=== PATIENT | female | born 1955 | race Caucasian/White ===

== ENCOUNTER 2016-07-10 11:53 | Emergency (ER) | payer OTHER ==
[~2016-07-10] VITALS: Ht 165.1 cm; Wt 81.8 kg
[2016-07-10 12:09] VITALS: BP 154/74
--- NOTE | 2016-07-10 12:25 | PHYS DOC ---
Past History Past Medical History: Diverticulitis Past Surgical History: Hysterectomy, Other Alcohol Use: Occasionally Drug Use: None Adult General Chief Complaint Chief Complaint: ABDOMINAL PAIN [facility] HPI Patient is a is a 60-year-old female who presents with left lower quadrant abdominal pain since Friday with positive nausea but no vomiting. Patient states she's had low-grade fevers for the past 2 days. Patient denies any diarrhea or any blood in her stool. Patient states she has a history of diverticulitis and this feels like her previous episodes. She denies any chest pain or shortness of breath. She has no other complaints. Pertinent exam findings: Positive TTP left lower quadrant ED course: Patient is seen on arrival CBC, CMP, lipase, UA, CT of abdomen and pelvis with contrast, 1 L normal saline bolus were ordered 1410: Discussed results with the patient and the need for oral antibiotics and short-term follow-up with PCP. Pertinent findings: Acute doctor colitis on the CT scan MMD: After reviewing the chart, chief complaint, history of present illness, past medical history, lab results, CT results I do not believe the patient has a significant intra-abdominal infection warranting further workup and admission at this time. I believe patient is stable to be discharged home for outpatient treatment of a non-complicated articulate this. Recommended patient follow-up with PCP in 1-2 days and return symptoms increase. Additional verbal discharge infections were provided patient in the symptoms get worse or any new symptoms arise that are worrisome to the patient he's returned emergency room immediately. Review of Systems Review of Systems Constitutional: Denies fever or chills [] Eyes: Denies change in visual acuity, redness, or eye pain [] HENT: Denies nasal congestion or sore throat [] Respiratory: Denies cough or shortness of breath [] Cardiovascular: No additional information not addressed in HPI [] GI: Left lower quadrant abdominal pain : Denies dysuria or hematuria [] Musculoskeletal: Denies back pain or joint pain [] Integument: Denies rash or skin lesions [] Current Medications Current Medications Current Medications Medications (Trade) Dose Ordered Sig/Steven Start Time Stop Time Status Last Admin Dose Admin Sodium Chloride 1,000 ml @ 1,000 mls/hr 1X ONCE 07/10/16 12:30 07/10/16 13:29 UNV Allergies Allergies Allergies Coded Allergies Type Severity Reaction Last Updated Verified No Known Drug Allergies 03/31/16 No Physical Exam Physical Exam Constitutional: Well developed, well nourished, no acute distress, non-toxic appearance. [] HENT: Normocephalic, atraumatic, bilateral external ears normal, oropharynx moist, no oral exudates, nose normal. [] Eyes: PERRLA, EOMI, conjunctiva normal, no discharge. [] Neck: Normal range of motion, no tenderness, supple, no stridor. [] Cardiovascular:Heart rate regular rhythm, no murmur [] Lungs & Thorax: Bilateral breath sounds clear to auscultation [] Abdomen: Bowel sounds normal, soft, positive TTP left lower quadrant, no masses , no pulsatile masses. [] Skin: Warm, dry, no erythema, no rash. [] Back: No tenderness, no CVA tenderness. [] Extremities: No tenderness, no cyanosis, no clubbing, ROM intact, no edema. [] Neurologic: Alert and oriented X 3, normal motor function, normal sensory function, no focal deficits noted. [] Psychologic: Affect normal, judgement normal, mood normal. [] Current Patient Data Vital Signs Vital Signs Date Time Temp Pulse Resp B/P (MAP) Pulse Ox O2 Delivery O2 Flow Rate FiO2 07/10/16 12:09 97.9 79 20 97 Room Air EKG EKG [] Radiology/Procedures Radiology/Procedures IMPRESSION: Mild inflammatory changes extending over approximately a 4 to 5 cm segment at the junction of the descending and sigmoid colon. Findings would be compatible with relatively mild diverticulitis. No discrete abscess is seen. (If colonoscopy has not been recently performed this should be considered. Underlying malignancy in the colon is not excluded on the basis of this exam). Course & Med Decision Making Course & Med Decision Making Pertinent Labs and Imaging studies reviewed. (See chart for details) [] Dragon Disclaimer Dragon Disclaimer This chart was dictated in whole or in part using Voice Recognition software in a busy, high-work load, and often noisy Emergency Department environment. It may contain unintended and wholly unrecognized errors or omissions. Departure Departure: Impression: Primary Impression: Diverticulitis large intestine Disposition: 01 HOME, SELF-CARE Condition: IMPROVED Referrals: PERRI RIGGINS MD (PCP) Patient Instructions: Diverticulitis Additional Instructions: Please follow up with family doctor in one to 2 days. Scripts Metronidazole (FLAGYL) 500 Mg Tablet 500 MG PO TID for 10 Days, #30 TAB Prov: CLIFFORD WAN DO 07/10/16 Ciprofloxacin Hcl (CIPRO) 500 Mg Tablet 500 MG PO BID for 10 Days, #20 TAB Prov: CLIFFORD WAN DO 07/10/16 Problem Qualifiers Primary Impression: Diverticulitis large intestine Diverticulitis bleeding: without bleeding Diverticulitis complication: without perforation or abscess Qualified Codes: K57.32 - Diverticulitis of large intestine without perforation or abscess without bleeding CLIFFORD WAN DO July 10, 2016 12:25
[2016-07-10] MEDS ORDERED: IV NORMAL SALINE 1,000ML 1,000 ML IV ONE (12:30)
[2016-07-10] MEDS ORDERED: ONDANSETRON PF 4 MG/2 ML VIAL. ONE (12:32)
[2016-07-10] MEDS ORDERED: IOHEXOL 300 MG/ML 75 ML VIAL. IV ONE (12:45)
[2016-07-10 13:02] LABS: BASO # 0.1 x10^3/uL (0.0-0.2); BASO % 1 % (0-3); EOS # 0.1 x10^3/uL (0.0-0.7); EOS % 1 % (0-3); HEMATOCRIT 41.3 % (36.0-47.0); HEMOGLOBIN 14.2 g/dL (12.0-15.5); LYMPH # 2.4 x10^3/uL (1.0-4.8); LYMPH % 20 % (24-48); MEAN CORPUSCULAR HEMOGLOBIN 28 pg (25-35); MEAN CORPUSCULAR HGB CONC 35 g/dL (31-37); MEAN CORPUSCULAR VOLUME 80 fL (79-100); MONO % 8 % (0-9); NEUT # 8.3 x10^3uL (1.8-7.7); NEUT % 70 % (31-73); PLATELET COUNT 319 x10^3/uL (140-400); RED BLOOD COUNT 5.16 x10^6/uL (3.50-5.40); RED CELL DISTRIBUTION WIDTH 14.3 % (11.5-14.5)
[2016-07-10 13:16] LABS: ALBUMIN 3.8 g/dL (3.4-5.0); ALBUMIN/GLOBULIN RATIO 0.8 (1.0-1.7); CALCIUM 9.2 mg/dL (8.5-10.1); CREATININE 0.9 mg/dL (0.6-1.0); GFR 63.4; POTASSIUM 3.4 mmol/L (3.5-5.1); TOTAL BILIRUBIN 0.3 mg/dL (0.2-1.0); TOTAL PROTEIN 8.3 g/dL (6.4-8.2)
--- NOTE | 2016-07-10 13:19 | RAD ---
Indication left lower quadrant pain. Axial images through the abdomen and pelvis were obtained. IV contrast, approximately 75 cc of Omnipaque 300 was administered. No oral contrast was administered. Note is made of a previous exam just over 3 months ago The lung bases are clear. A focal mass lesion in the liver is not seen. There is mild fatty infiltration. The spleen appears unremarkable. Clips are noted in the gallbladder fossa. The pancreas appears unremarkable. No adrenal pathology is seen. There is a left renal cysts similar to the previous exam. In the pelvis diverticular disease is noted associated with the large bowel. This is most pronounced in the sigmoid colon. There are probable mild inflammatory changes at the junction of the descending and sigmoid colon extending over approximately a 4 to 5 cm segment. Inflammatory changes are similar to the previous exam. No discrete abscess is seen. IMPRESSION: Mild inflammatory changes extending over approximately a 4 to 5 cm segment at the junction of the descending and sigmoid colon. Findings would be compatible with relatively mild diverticulitis. No discrete abscess is seen. (If colonoscopy has not been recently performed this should be considered. Underlying malignancy in the colon is not excluded on the basis of this exam).
[2016-07-10 13:34] LABS: BACTERIA,URINE 0 /HPF (0-FEW); BILIRUBIN,URINE NEG (NEG); CLARITY,URINE HAZY; COLOR,URINE YELLOW; GLUCOSE,URINE NEG (NEG); NITRITE,URINE NEG (NEG); RBC,URINE RARE /HPF (0-2); SQUAMOUS EPITHELIAL CELL,UR OCC /LPF; UROBILINOGEN,URINE 0.2 mg/dL (0.2 mg/dL); WBC,URINE RARE /HPF (0-4)
[2016-07-10] MEDS ORDERED: CIPR500T94 PO (14:16)
[2016-07-10] MEDS ORDERED: METR500T PO (14:16)
== END 2016-07-10 14:30 | disposition home or self-care (01) ==
LOC: ER 11:53
DX: K57.32 Diverticulitis of large intestine without perforation or abscess without bleeding (principal); Z90.710 Acquired absence of both cervix and uterus
CPT/HCPCS: 36415; 74177; 80053; 81001; 83690; 85027; 96360; 99285; Q9967; J7030

== ENCOUNTER 2016-08-06 18:57 | Emergency (ER) | payer OTHER ==
[~2016-08-06] VITALS: Ht 165.1 cm; Wt 81.8 kg
[~2016-08-06 18:57] MED LIST: CIPR500T94 PO; METR500T PO
[2016-08-06 19:00] VITALS: BP 123/66
[2016-08-06] MEDS ORDERED: IV NORMAL SALINE 1,000ML 1,000 ML IV SCH (19:07)
[2016-08-06] MEDS ORDERED: ONDANSETRON PF 4 MG/2 ML VIAL. IV ONE (19:15)
[2016-08-06] MEDS ORDERED: fentaNYL PF 100 MCG/2 ML VIAL IV PRN (19:15)
--- NOTE | 2016-08-06 19:21 | ED.ADGEN ---
Past History Past Medical History: Diverticulitis Past Surgical History: Hysterectomy, Other Alcohol Use: Occasionally Drug Use: None Adult General HPI HPI Patient is a 60-year-old woman, history of hypertension, myasthenia gravis, diverticulitis, first diagnosed in 2014, with 3 previous flares this year, who presents to the emergency department with complaint of abdominal pain with concern for recurrent diverticulitis. Patient states that the symptoms are the same as with her previous episodes, she states that it began about 3 days ago, without any triggers, symptoms have been worsening, pain currently is a 3 out of 10, but is going up to a 9 out of 10 at times, associated with multiple sodas of diarrhea over the past 3 days, with 4 episodes today of loose brown stool. She denies any nausea or vomiting currently, denies any blood in her stool, no fevers or chills, states that "I didn't wait long enough for that to happen this time". Patient states she has hydrocodone at home, but has not yet taken one, she preferred to come to the ED for evaluation after contacting her major gifts officer, Dr. Knox's, office. She states she has an appointment for August 21. Her last colonoscopy was in 2014, she states that they have discussed surgical intervention due to the recurrent episodes. Patient denies any injuries , any sick contacts or exposures, any known triggers. She states that she has been taking her is a steak mean without issue, and her antihypertensive medications. Patient has not taken any antibiotics since her previous episode of diverticulitis in June. Review of Systems Review of Systems Constitutional: Denies fever or chills [] Eyes: Denies change in visual acuity, redness, or eye pain [] HENT: Denies nasal congestion or sore throat [] Respiratory: Denies cough or shortness of breath [] Cardiovascular: No additional information not addressed in HPI [] GI: Sharp stabbing left lower quadrant abdominal pain, associated with multiple sodas of loose brown stool, no nausea, vomiting, bloody stools. : Denies dysuria or hematuria [] Musculoskeletal: Denies back pain or joint pain [] Integument: Denies rash or skin lesions [] Neurologic: Denies headache, focal weakness or sensory changes [] Endocrine: Denies polyuria or polydipsia [] Current Medications Current Medications Current Medications Medications (Trade) Dose Ordered Sig/Steven Start Time Stop Time Status Last Admin Dose Admin Fentanyl Citrate (Fentanyl 2ml Vial) 25 mcg PRN Q15MIN PRN 08/06/16 19:15 08/06/16 21:52 DC Info (Do NOT chart on this entry -- for MONITORING) 1 each PRN DAILY PRN 08/06/16 20:15 08/06/16 21:52 DC Iohexol (Omnipaque 300 Mg/ml) 75 ml 1X ONCE 08/06/16 20:15 08/06/16 20:16 DC Levofloxacin (Levaquin) 500 mg 1X ONCE 08/06/16 21:30 08/06/16 21:31 DC 08/06/16 21:30 500 MG Metronidazole (Flagyl) 500 mg 1X ONCE 08/06/16 21:30 08/06/16 21:31 DC 08/06/16 21:30 500 MG Ondansetron HCl (Zofran) 4 mg 1X ONCE 08/06/16 19:15 08/06/16 19:21 DC 08/06/16 19:30 4 MG Oxycodone/ Acetaminophen (Percocet 5/325) 1 tab 1X ONCE 08/06/16 21:30 08/06/16 21:31 DC Sodium Chloride 1,000 ml @ 1,000 mls/hr Q1H 08/06/16 19:07 08/06/16 20:06 DC 08/06/16 19:30 1,000 MLS/HR Allergies Allergies Allergies Coded Allergies Type Severity Reaction Last Updated Verified No Known Drug Allergies 03/31/16 No Physical Exam Physical Exam Constitutional: Well developed, well nourished, no acute distress, non-toxic appearance. [] HENT: Normocephalic, atraumatic, bilateral external ears normal, oropharynx moist, no oral exudates, nose normal. [] Eyes: PERRLA, EOMI, conjunctiva normal, no discharge. [] Neck: Normal range of motion, no tenderness, supple, no stridor. [] Cardiovascular:Heart rate regular rhythm, no murmur, S1, S2, no rubs or gallops. [] Lungs & Thorax: Bilateral breath sounds clear to auscultation, no wheezing, rhonchi, rales. No chest wall crepitus or tenderness. [] Abdomen: Bowel sounds normal, soft, tenderness to palpation in the left lower quadrant, with mild voluntary guarding, no rebound or rigidity, no masses, no pulsatile masses. [] Skin: Warm, dry, no erythema, no rash. [] Back: No tenderness, no CVA tenderness. [] Extremities: No tenderness, no cyanosis, no clubbing, ROM intact, no edema. [] Neurologic: Alert and oriented X 3, normal motor function, normal sensory function, no focal deficits noted. [] Psychologic: Affect normal, judgement normal, mood normal. [] Current Patient Data Vital Signs Vital Signs Date Time Temp Pulse Resp B/P (MAP) Pulse Ox O2 Delivery O2 Flow Rate FiO2 08/06/16 19:00 98.7 82 20 97 Room Air Lab Results Laboratory Tests Test 08/06/16 19:25 White Blood Count 12.9 x10^3/uL (4.0-11.0) H Red Blood Count 4.72 x10^6/uL (3.50-5.40) Hemoglobin 12.9 g/dL (12.0-15.5) Hematocrit 38.1 % (36.0-47.0) Mean Corpuscular Volume 81 fL (79-100) Mean Corpuscular Hemoglobin 27 pg (25-35) Mean Corpuscular Hemoglobin Concent 34 g/dL (31-37) Red Cell Distribution Width 14.2 % (11.5-14.5) Platelet Count 291 x10^3/uL (140-400) Neutrophils (%) (Auto) 70 % (31-73) Lymphocytes (%) (Auto) 20 % (24-48) L Monocytes (%) (Auto) 8 % (0-9) Eosinophils (%) (Auto) 2 % (0-3) Basophils (%) (Auto) 1 % (0-3) Neutrophils # (Auto) 9.0 x10^3uL (1.8-7.7) H Lymphocytes # (Auto) 2.5 x10^3/uL (1.0-4.8) Monocytes # (Auto) 1.0 x10^3/uL (0.0-1.1) Eosinophils # (Auto) 0.2 x10^3/uL (0.0-0.7) Basophils # (Auto) 0.1 x10^3/uL (0.0-0.2) Urine Collection Type Unknown Urine Color Yellow Urine Clarity Clear Urine pH 6.0 Urine Specific [place] 1.015 Urine Protein Neg (NEG-TRACE) Urine Glucose (UA) Neg mg/dL (NEG) Urine Ketones (Stick) Neg mg/dL (NEG) Urine Blood Small (NEG) Urine Nitrite Neg (NEG) Urine Bilirubin Neg (NEG) Urine Urobilinogen Dipstick 0.2 mg/dL (0.2 mg/dL) Urine Leukocyte Esterase Trace (NEG) Urine RBC Occ /HPF (0-2) Urine WBC 1-4 /HPF (0-4) Urine Squamous Epithelial Cells Occ /LPF Urine Bacteria Few /HPF (0-FEW) Sodium Level 139 mmol/L (136-145) Potassium Level 3.2 mmol/L (3.5-5.1) L Chloride Level 101 mmol/L (98-107) Carbon Dioxide Level 29 mmol/L (21-32) Anion Gap 9 (6-14) Blood Urea Nitrogen 23 mg/dL (7-20) H Creatinine 0.9 mg/dL (0.6-1.0) Estimated GFR (Cockcroft-Gault) 63.4 BUN/Creatinine Ratio 26 (6-20) H Glucose Level 93 mg/dL (70-99) Calcium Level 8.8 mg/dL (8.5-10.1) Total Bilirubin 0.3 mg/dL (0.2-1.0) Aspartate Amino Transferase (AST) 35 U/L (15-37) Alanine Aminotransferase (ALT) 51 U/L (14-59) Alkaline Phosphatase 96 U/L (46-116) Total Protein 7.6 g/dL (6.4-8.2) Albumin 3.7 g/dL (3.4-5.0) Albumin/Globulin Ratio 0.9 (1.0-1.7) L Lipase 165 U/L (73-393) Radiology/Procedures Radiology/Procedures [][address] [address] IMAGING REPORT Signed PATIENT: PATT ZULETA ACCOUNT: [id number] : 1955 LOCATION: ER AGE: 60 SEX: F EXAM STATUS: REG ER ORD. PHYSICIAN: BRISA COATS DO REASON: LLQ abd pain x 3 days, hx of diverticulitis PROCEDURE: CT ABD PELV W/ IV CONTRST ONLY CT ABD PELV W/ IV CONTRST ONLY dated 08/06/2016 7:15 PM Indication: Abdominal pain, painLLQ PAIN, HX DIVERTICULITIS, VINH, HYSTERECTOMY pain for 3 days Comparison: 03/31/2016 Technique: Contiguous axial imaging of the abdomen and pelvis performed after the intravenous administration of Isovue 370. One or more of the following individualized dose reduction techniques were utilized for this examination: 1. Automated exposure control 2. Adjustment of the mA and/or kV according to patient size 3. Use of iterative reconstruction technique Findings: Limited images of lung bases show minimal linear opacity in the lingula and left lower lobe, likely scar or atelectasis. Heart size within normal limits. No pleural or pericardial effusion. Liver is of diffuse low density suggesting mild fatty infiltration. No apparent hepatic mass. Biliary tree normal in caliber. The gallbladder is surgically absent. Spleen, pancreas, adrenal glands and kidneys are unremarkable. Exophytic low-density lesion mid pole left kidney measures 2.1 cm in size and Hounsfield value of 25. Additional low-density focus at the upper pole left kidney with Hounsfield value of 3, consistent with cyst. No hydronephrosis. Unopacified GI tract normal in caliber and contour. No focal bowel wall thickening. No inflammatory stranding in the mesentery. There are a few scattered diverticula of throughout the colon. No pericolonic inflammatory changes. No free fluid or lymphadenopathy. Abdominal aorta normal in caliber. Images of the pelvis a nondistended urinary bladder. Uterus is surgically absent. No free pelvic fluid or pelvic lymphadenopathy. Bone windows show no acute findings. Mild multilevel spondylosis. IMPRESSION: 1. No acute abnormality of the abdomen or pelvis. 2. Diverticulosis with no evidence of acute diverticulitis. 3. Mild fatty infiltration of the liver. 4. Indeterminate small exophytic nodule at the mid to lower pole left kidney. This could represent a hyperdense cyst or cystic neoplasm. Suggest ultrasound for further evaluation. Electronically signed by: Terence Wisdom MD (08/06/2016 8:45 PM) DICTATED AND SIGNED BY: TERENCE WISDOM MD DATE: 08/06/162038 CC: PERRI RIGGINS MD; BRISA COATS DO ~ Course & Med Decision Making Course & Med Decision Making Pertinent Labs and Imaging studies reviewed. (See chart for details) After discussion at bedside, patient is agreeable to receiving pain medication, antiemetics as needed, and IV fluids. She has had multiple imaging of her abdomen previously, due to the history of diverticulitis, and length of time of symptoms, will proceed with repeat imaging of the abdomen, after discussion of benefits and risk, along with laboratory studies. She declined medication on reevaluation, CT imaging does not reveal any evidence of abscess formation or other concerning abdominal findings. I did discuss this with patient, however based on her mildly elevated white blood cell count of 12.9, and history of multiple sodas of diverticulitis with similar presentation, will initiate the patient on antibiotics, and have her follow-up with her gastric neurologist for additional evaluation and management. Patient received first dose of Levaquin and maternal reproducible in the ED, she has taken these medications previously is familiar with risks and side effects. First dose tolerated in the ED without issue. Patient given clear and detailed return instructions and precautions, patient voiced understanding and agreement. Discharged home in stable condition with plan as above. Final Impression Final Impression [] Problems: Dragon Disclaimer Dragon Disclaimer This electronic medical record was generated, in whole or in part, using a voice recognition dictation system. Departure: Impression: Primary Impression: Diverticulitis Additional Impressions: Leukocytosis Diarrhea Disposition: 01 HOME, SELF-CARE Condition: IMPROVED Scripts Hydrocodone Bit/Acetaminophen (HYDROCODONE-APAP 5-325 ) 1 Each Tablet 1 TAB PO PRN Q6HRS Y for PAIN, #12 TAB 0 Refills Prov: BRISA COATS DO 08/06/16 Metronidazole (METRONIDAZOLE) 500 Mg Tablet 1 TAB PO BID, #13 TAB Prov: BRISA COATS DO 08/06/16 Levofloxacin (LEVAQUIN) 750 Mg Tablet 1 TAB PO DAILY, #6 TAB Prov: BRISA COATS DO 08/06/16 Ondansetron Hcl (ZOFRAN) 4 Mg Tablet 4 MG PO PRN Q8HRS Y for NAUSEA, #12 Prov: BRISA COATS DO 08/06/16 BRISA COATS DO Aug 06, 2016 19:21
[2016-08-06 19:56] LABS: BASO # 0.1 x10^3/uL (0.0-0.2); BASO % 1 % (0-3); EOS # 0.2 x10^3/uL (0.0-0.7); EOS % 2 % (0-3); HEMATOCRIT 38.1 % (36.0-47.0); HEMOGLOBIN 12.9 g/dL (12.0-15.5); LYMPH # 2.5 x10^3/uL (1.0-4.8); LYMPH % 20 % (24-48); MEAN CORPUSCULAR HEMOGLOBIN 27 pg (25-35); MEAN CORPUSCULAR HGB CONC 34 g/dL (31-37); MEAN CORPUSCULAR VOLUME 81 fL (79-100); MONO % 8 % (0-9); NEUT % 70 % (31-73); PLATELET COUNT 291 x10^3/uL (140-400); RED BLOOD COUNT 4.72 x10^6/uL (3.50-5.40); RED CELL DISTRIBUTION WIDTH 14.2 % (11.5-14.5); WHITE BLOOD COUNT 12.9 x10^3/uL (4.0-11.0)
[2016-08-06 20:09] LABS: ALBUMIN 3.7 g/dL (3.4-5.0); ALBUMIN/GLOBULIN RATIO 0.9 (1.0-1.7); CALCIUM 8.8 mg/dL (8.5-10.1); CREATININE 0.9 mg/dL (0.6-1.0); GFR 63.4; POTASSIUM 3.2 mmol/L (3.5-5.1); TOTAL BILIRUBIN 0.3 mg/dL (0.2-1.0); TOTAL PROTEIN 7.6 g/dL (6.4-8.2)
[2016-08-06 20:13] LABS: BACTERIA,URINE FEW /HPF (0-FEW); BILIRUBIN,URINE NEG (NEG); CLARITY,URINE CLEAR; COLOR,URINE YELLOW; GLUCOSE,URINE NEG (NEG); NITRITE,URINE NEG (NEG); RBC,URINE OCC /HPF (0-2); SQUAMOUS EPITHELIAL CELL,UR OCC /LPF; UROBILINOGEN,URINE 0.2 mg/dL (0.2 mg/dL)
[2016-08-06] MEDS ORDERED: IOHEXOL 300 MG/ML 75 ML VIAL. IV ONE ×2 (20:15)
[2016-08-06] MEDS ORDERED: CONTRAST GIVEN MC PRN (20:15)
--- NOTE | 2016-08-06 20:48 | RAD ---
CT ABD PELV W/ IV CONTRST ONLY dated 08/06/2016 7:15 PM Indication: Abdominal pain, painLLQ PAIN, HX DIVERTICULITIS, VINH, HYSTERECTOMY pain for 3 days Comparison: 03/31/2016 Technique: Contiguous axial imaging of the abdomen and pelvis performed after the intravenous administration of Isovue 370. One or more of the following individualized dose reduction techniques were utilized for this examination: 1. Automated exposure control 2. Adjustment of the mA and/or kV according to patient size 3. Use of iterative reconstruction technique Findings: Limited images of lung bases show minimal linear opacity in the lingula and left lower lobe, likely scar or atelectasis. Heart size within normal limits. No pleural or pericardial effusion. Liver is of diffuse low density suggesting mild fatty infiltration. No apparent hepatic mass. Biliary tree normal in caliber. The gallbladder is surgically absent. Spleen, pancreas, adrenal glands and kidneys are unremarkable. Exophytic low-density lesion mid pole left kidney measures 2.1 cm in size and Hounsfield value of 25. Additional low-density focus at the upper pole left kidney with Hounsfield value of 3, consistent with cyst. No hydronephrosis. Unopacified GI tract normal in caliber and contour. No focal bowel wall thickening. No inflammatory stranding in the mesentery. There are a few scattered diverticula of throughout the colon. No pericolonic inflammatory changes. No free fluid or lymphadenopathy. Abdominal aorta normal in caliber. Images of the pelvis a nondistended urinary bladder. Uterus is surgically absent. No free pelvic fluid or pelvic lymphadenopathy. Bone windows show no acute findings. Mild multilevel spondylosis. IMPRESSION: 1. No acute abnormality of the abdomen or pelvis. 2. Diverticulosis with no evidence of acute diverticulitis. 3. Mild fatty infiltration of the liver. 4. Indeterminate small exophytic nodule at the mid to lower pole left kidney. This could represent a hyperdense cyst or cystic neoplasm. Suggest ultrasound for further evaluation. Electronically signed by: Terence Wisdom MD (08/06/2016 8:45 PM)
[2016-08-06] MEDS ORDERED: metroNIDAZOLE 500 MG TABLET PO ONE (21:30)
[2016-08-06] MEDS ORDERED: levoFLOXacin 500 MG TABLET PO ONE (21:30)
[2016-08-06] MEDS ORDERED: oxyCODONE/APAP 5/325 1 TAB TABLET PO ONE (21:30)
[2016-08-06] MEDS ORDERED: HYDR-2758 PO (21:37)
[2016-08-06] MEDS ORDERED: LEVO750T31 PO (21:37)
[2016-08-06] MEDS ORDERED: ONDA4TAB7 PO (21:37)
[2016-08-06] MEDS ORDERED: METR500T8 PO (21:37)
== END 2016-08-06 21:50 | disposition home or self-care (01) ==
LOC: ER 18:57
DX: K57.92 Diverticulitis of intestine, part unspecified, without perforation or abscess without bleeding (principal); D72.829 Elevated white blood cell count, unspecified; R19.7 Diarrhea, unspecified; G70.00 Myasthenia gravis without (acute) exacerbation; I10 Essential (primary) hypertension
CPT/HCPCS: 36415; 74177; 80053; 81001; 83690; 85027; 96361; 96374; 99285; J2405; Q9967; 87086; J7030

== ENCOUNTER 2019-08-16 14:59 | Emergency (ER) | payer MEDICARE ==
[~2019-08-16] VITALS: Ht 165.1 cm; Wt 80.0 kg
[~2019-08-16 14:59] MED LIST changes: +HYDR-2155 PO; +LEVO750T31 PO; +METR-34 PO; +ONDA4TAB7 PO
[2019-08-16] MEDS ORDERED: FAMOTIDINE 20 MG/2 ML VIAL IVP ONE (15:45)
[2019-08-16] MEDS ORDERED: IV NORMAL SALINE 1,000ML 1,000 ML IV ONE (15:45)
[2019-08-16] MEDS ORDERED: KETOROLAC 15 MG/ML VIAL. IVP ONE (15:45)
[2019-08-16 16:09] LABS: BASO % 0 % (0-3); EOS % 0 % (0-3); HEMATOCRIT 41.2 % (36.0-47.0); HEMOGLOBIN 14.1 g/dL (12.0-15.5); LYMPH # 0.9 x10^3/uL (1.0-4.8); LYMPH % 7 % (24-48); MEAN CORPUSCULAR HEMOGLOBIN 28 pg (25-35); MEAN CORPUSCULAR HGB CONC 34 g/dL (31-37); MEAN CORPUSCULAR VOLUME 83 fL (79-100); MONO # 0.7 x10^3/uL (0.0-1.1); MONO % 5 % (0-9); NEUT # 11.9 x10^3uL (1.8-7.7); NEUT % 88 % (31-73); PLATELET COUNT 351 x10^3/uL (140-400); RED BLOOD COUNT 4.98 x10^6/uL (3.50-5.40); RED CELL DISTRIBUTION WIDTH 14.1 % (11.5-14.5); WHITE BLOOD COUNT 13.5 x10^3/uL (4.0-11.0)
[2019-08-16 16:19] LABS: BACTERIA,URINE MANY /HPF (0-FEW); BILIRUBIN,URINE NEG (NEG); CLARITY,URINE CLOUDY; COLOR,URINE AMBER; GLUCOSE,URINE NEG (NEG); HYALINE CASTS, URINE FEW /HPF; NITRITE,URINE NEG (NEG); SQUAMOUS EPITHELIAL CELL,UR MOD /LPF; UROBILINOGEN,URINE 0.2 mg/dL (0.2 mg/dL)
[2019-08-16 16:19] LABS: ALBUMIN 3.8 g/dL (3.4-5.0); ALBUMIN/GLOBULIN RATIO 0.9 (1.0-1.7); CALCIUM 9.1 mg/dL (8.5-10.1); CREATININE 1.1 mg/dL (0.6-1.0); GFR 49.7; MAGNESIUM 1.8 mg/dL (1.8-2.4); TOTAL BILIRUBIN 0.4 mg/dL (0.2-1.0); TOTAL PROTEIN 7.9 g/dL (6.4-8.2)
[2019-08-16 16:23] LABS: POTASSIUM 2.9 mmol/L (3.5-5.1)
[2019-08-16 16:28] VITALS: BP 95/55
[2019-08-16] MEDS ORDERED: IOHEXOL 300 MG/ML 75 ML VIAL. IV ONE (16:45)
--- NOTE | 2019-08-16 17:06 | RAD ---
Exam: CT of abdomen and pelvis with contrast INDICATION: Abdominal pain, evaluate for acute diverticulitis TECHNIQUE: Sequential axial images through the abdomen and pelvis obtained following the administration of 75 mL of Omni 300 IV contrast. Sagittal and coronal reformatted images were reconstructed from the axial data and reviewed. Comparisons: 08/06/2016 FINDINGS: Heart size is normal. No pericardial effusion. Visualized lung bases are clear. No pleural effusion. Mild diffuse hepatic steatosis. Spleen, pancreas, and adrenals are unremarkable. Gallbladder surgically absent. Kidneys a straight symmetric enhancement. There are 2 cystic lesion at the left kidney not significantly Changed from prior study from 2017. No perinephric inflammation or hydronephrosis. No renal or ureteral calculi are identified. Bladder is decompressed not well evaluated. Uterus is absent. No abnormal adnexal mass. Diverticulosis noted at the sigmoid colon with a mild amount of fat stranding at the left pelvic sidewall. The remainder of the large and small bowel are unremarkable. Appendix is not identified. No free intra-abdominal air or fluid. No obstruction. Abdominal aorta has a normal course and caliber. Abdominal vasculature is patent. No enlarged abdominal lymph nodes are identified. No suspicious osseous lesions or acute fractures. IMPRESSION: 1. Findings of mild diverticulitis at the sigmoid colon. No evidence for perforation or adjacent abscess. 2. Mild diffuse hepatic steatosis. Exposure: One or more of the following in the visualized dose reduction techniques were utilized for this examination: 1. Automated exposure control 2. Adjustment of the MA and/or KV according to patient size 3. Use of iterative of reconstructive technique Electronically signed by: Wen Davis MD (08/16/2019 5:03 PM) [id number]
[2019-08-16] MEDS ORDERED: METR500T PO (17:13)
[2019-08-16] MEDS ORDERED: CIPR500T94 PO (17:13)
--- NOTE | 2019-08-16 17:13 | PHYS DOC ---
Past History Past Medical History: Diverticulitis Past Surgical History: Hysterectomy, Other Smoking: Non-smoker Alcohol Use: Rarely Drug Use: None General Adult EDM: Chief Complaint: ABDOMINAL PAIN HPI: HPI: 64 year old female presents with left lower quadrant abdominal discomfort that started 4 days ago. Patient has a history of diverticulitis and reports symptoms very similar to prior episodes. Patient denies any nausea or vomiting. Denies fever or chills. Patient reports she is having some difficulty with having a bowel movement. Reports some constipation. Patient reports she thinks symptoms were secondary to eating some "baklava" that night for her birthday. Denies trauma. Review of Systems: Review of Systems: Constitutional: Denies fever or chills Eyes: Denies redness or eye pain HENT: Denies nasal congestion or sore throat Respiratory: Denies cough or shortness of breath Cardiovascular: Denies chest pain or palpitations GI: Reports abdominal pain; denies nausea or vomiting : Denies dysuria or hematuria Musculoskeletal: Denies back pain or joint pain Integument: Denies rash or skin lesions Neurologic: Denies headache, focal weakness or sensory changes Complete systems were reviewed and found to be within normal limits, except as documented in this note. Current Medications: Current Meds: Current Medications Medications (Trade) Dose Ordered Sig/Steven Start Time Stop Time Status Last Admin Dose Admin Famotidine (Pepcid Vial) 20 mg 1X ONCE 08/16/19 15:45 08/16/19 15:46 DC 08/16/19 15:58 20 MG Iohexol (Omnipaque 300 Mg/ml) 75 ml 1X ONCE 08/16/19 16:45 08/16/19 16:46 DC 08/16/19 16:42 75 ML Ketorolac Tromethamine (Toradol 15mg Vial) 10 mg 1X ONCE 08/16/19 15:45 08/16/19 15:46 DC 08/16/19 15:58 10 MG Sodium Chloride 1,000 ml @ 1,000 mls/hr 1X ONCE 08/16/19 15:45 08/16/19 16:44 DC 08/16/19 16:00 1,000 MLS/HR Allergies: Allergies: Allergies Coded Allergies Type Severity Reaction Last Updated Verified No Known Drug Allergies 03/31/16 No Physical Exam: PE: Constitutional: Well developed, well nourished, no acute distress, non-toxic appearance HENT: Normocephalic, atraumatic Eyes: Conjunctiva normal, no discharge Neck: Normal range of motion, no tenderness, supple Lungs & Thorax: No respiratory distress, equal chest rise and fall Abdomen: Soft, mild left lower quadrant tenderness on palpation, no guarding/rebound tenderness/distention Skin: Warm, dry, no erythema, no rash Back: No tenderness, no CVA tenderness Extremities: No tenderness, ROM intact, no edema Neurologic: Alert and oriented X 3, no focal deficits noted Psychologic: Affect normal, judgment normal Current Patient Data: Labs: Laboratory Tests Test 08/16/19 15:44 08/16/19 15:48 Urine Collection Type Unknown Urine Color Donna Urine Clarity Cloudy Urine pH 5.5 Urine Specific [place] 1.025 Urine Protein Trace (NEG-TRACE) Urine Glucose (UA) Neg mg/dL (NEG) Urine Ketones (Stick) Trace mg/dL (NEG) Urine Blood Neg (NEG) Urine Nitrite Neg (NEG) Urine Bilirubin Neg (NEG) Urine Urobilinogen Dipstick 0.2 mg/dL (0.2 mg/dL) Urine Leukocyte Esterase Neg (NEG) Urine RBC 1-2 /HPF (0-2) Urine WBC 5-10 /HPF (0-4) Urine Squamous Epithelial Cells Mod /LPF Urine Bacteria Many /HPF (0-FEW) Urine Hyaline Casts Few /HPF Urine Mucus Mod /LPF White Blood Count 13.5 x10^3/uL (4.0-11.0) H Red Blood Count 4.98 x10^6/uL (3.50-5.40) Hemoglobin 14.1 g/dL (12.0-15.5) Hematocrit 41.2 % (36.0-47.0) Mean Corpuscular Volume 83 fL (79-100) Mean Corpuscular Hemoglobin 28 pg (25-35) Mean Corpuscular Hemoglobin Concent 34 g/dL (31-37) Red Cell Distribution Width 14.1 % (11.5-14.5) Platelet Count 351 x10^3/uL (140-400) Neutrophils (%) (Auto) 88 % (31-73) H Lymphocytes (%) (Auto) 7 % (24-48) L Monocytes (%) (Auto) 5 % (0-9) Eosinophils (%) (Auto) 0 % (0-3) Basophils (%) (Auto) 0 % (0-3) Neutrophils # (Auto) 11.9 x10^3uL (1.8-7.7) H Lymphocytes # (Auto) 0.9 x10^3/uL (1.0-4.8) L Monocytes # (Auto) 0.7 x10^3/uL (0.0-1.1) Eosinophils # (Auto) 0.0 x10^3/uL (0.0-0.7) Basophils # (Auto) 0.0 x10^3/uL (0.0-0.2) Sodium Level 140 mmol/L (136-145) Potassium Level 2.9 mmol/L (3.5-5.1) *L Chloride Level 102 mmol/L (98-107) Carbon Dioxide Level 29 mmol/L (21-32) Anion Gap 9 (6-14) Blood Urea Nitrogen 25 mg/dL (7-20) H Creatinine 1.1 mg/dL (0.6-1.0) H Estimated GFR (Cockcroft-Gault) 49.7 BUN/Creatinine Ratio 23 (6-20) H Glucose Level 130 mg/dL (70-99) H Lactic Acid Level 1.6 mmol/L (0.4-2.0) Calcium Level 9.1 mg/dL (8.5-10.1) Magnesium Level 1.8 mg/dL (1.8-2.4) Total Bilirubin 0.4 mg/dL (0.2-1.0) Aspartate Amino Transferase (AST) 19 U/L (15-37) Alanine Aminotransferase (ALT) 31 U/L (14-59) Alkaline Phosphatase 97 U/L (46-116) Total Protein 7.9 g/dL (6.4-8.2) Albumin 3.8 g/dL (3.4-5.0) Albumin/Globulin Ratio 0.9 (1.0-1.7) L Lipase 84 U/L (73-393) Vital Signs: Vital Signs Date Time Temp Pulse Resp B/P (MAP) Pulse Ox O2 Delivery O2 Flow Rate FiO2 08/16/19 16:28 98.6 73 18 95/55 (68) 96 Room Air EKG: EKG: [] Radiology/Procedures: Radiology/Procedures: PROCEDURE: CT ABD PELV W/ IV CONTRST ONLY Exam: CT of abdomen and pelvis with contrast INDICATION: Abdominal pain, evaluate for acute diverticulitis TECHNIQUE: Sequential axial images through the abdomen and pelvis obtained following the administration of 75 mL of Omni 300 IV contrast. Sagittal and coronal reformatted images were reconstructed from the axial data and reviewed. Comparisons: 08/06/2016 FINDINGS: Heart size is normal. No pericardial effusion. Visualized lung bases are clear. No pleural effusion. Mild diffuse hepatic steatosis. Spleen, pancreas, and adrenals are unremarkable. Gallbladder surgically absent. Kidneys a straight symmetric enhancement. There are 2 cystic lesion at the left kidney not significantly Changed from prior study from 2017. No perinephric inflammation or hydronephrosis. No renal or ureteral calculi are identified. Bladder is decompressed not well evaluated. Uterus is absent. No abnormal adnexal mass. Diverticulosis noted at the sigmoid colon with a mild amount of fat stranding at the left pelvic sidewall. The remainder of the large and small bowel are unremarkable. Appendix is not identified. No free intra-abdominal air or fluid. No obstruction. Abdominal aorta has a normal course and caliber. Abdominal vasculature is patent. No enlarged abdominal lymph nodes are identified. No suspicious osseous lesions or acute fractures. IMPRESSION: 1. Findings of mild diverticulitis at the sigmoid colon. No evidence for perforation or adjacent abscess. 2. Mild diffuse hepatic steatosis. Exposure: One or more of the following in the visualized dose reduction techniques were utilized for this examination: 1. Automated exposure control 2. Adjustment of the MA and/or KV according to patient size 3. Use of iterative of reconstructive technique Electronically signed by: Wen Davis MD (08/16/2019 5:03 PM) [id number] Course & Med Decision Making: Course & Med Decision Making Pertinent Labs and Imaging studies reviewed. (See chart for details) Patient presents with history of present illness and physical exam concerning for acute diverticulitis flare. History of prior. Afebrile. Symptomatic tr eatment provided. IV fluid hydration given. Labs obtained and posted to chart. WBC and lactic acid within normal limits. Hypokalemia noted. CT abdomen/pelvis confirmed mild diverticulitis without perforation or abscess. Empiric antibiotic initiated with p.o. Flagyl and Cipro. Potassium replacement also provided. Patient stable for discharge with outpatient follow-up with PCP/GI. GI referral given. Discussed findings and plan with patient, who acknowledges understanding and agreement. Manny Disclaimer: Manny Disclaimer: This electronic medical record was generated, in whole or in part, using a voice recognition dictation system. Departure Departure: Impression: Primary Impression: Acute diverticulitis Additional Impression: Hypokalemia Disposition: HOME/RESIDENCE PRIOR TO ADM Condition: STABLE Referrals: PERRI RIGGINS MD (PCP) LISSETT FORMAN MD Patient Instructions: Diverticulitis, [id number], Hypokalemia, Potassium Content of Foods Scripts Metronidazole (FLAGYL) 500 Mg Tablet 1 TAB PO TID for Diverticulitis for 7 Days, #21 TAB Prov: HARRY DAMON DO 08/16/19 Ciprofloxacin Hcl (CIPRO) 500 Mg Tablet 1 TAB PO BID for Diverticulitis for 7 Days, #14 TAB Prov: HARRY DAMON DO 08/16/19 Justification of Admission: Justification of Admission: Justification of Admission Dx: N/A HARRY DAMON DO Aug 16, 2019 17:13
[2019-08-16] MEDS ORDERED: metroNIDAZOLE 500 MG TABLET PO ONE (17:15)
[2019-08-16] MEDS ORDERED: CIPROFLOXACIN HCL 500 MG TABLET PO ONE (17:15)
[2019-08-16] MEDS ORDERED: POTASSIUM CHLORIDE 20 MEQ TABLET.ER. PO ONE (17:15)
== END 2019-08-16 17:27 | disposition home or self-care (01) ==
LOC: ER 14:59
DX: K57.32 Diverticulitis of large intestine without perforation or abscess without bleeding (principal); E87.6 Hypokalemia; Z90.710 Acquired absence of both cervix and uterus
CPT/HCPCS: 36415; 74177; 80053; 81001; 83605; 83690; 83735; 85025; 87086; 96374; 96375; 99285; J1885; J3490; J7030; Q9967